=== PATIENT | male | born 1990 | race Caucasian/White ===

== ENCOUNTER 2023-07-21 19:52 | Emergency (ER) | payer OTHER, SELFPAY ==
[2023-07-21 19:57] VITALS: BP 134/93; PULSE 82; RESP 18; TEMP 37.1; O2SAT 100
--- NOTE | 2023-07-21 20:01 | ED.URI ---
HPI - URI/Sore Throat General Chief Complaint: Upper Respiratory Infection Stated Complaint: upper respiratory Time Seen by Provider: 07/21/23 20:00 Source: patient Mode of arrival: ambulatory Limitations: no limitations History of Present Illness HPI Narrative: 32-year-old male with a history of ankylosing spondylitis, anterior uveitis not on treatment presents to the ER with a 2 day history of -- sore throat -- no fever or chills. MD elicited complaint: sore throat Onset (ago): day(s) ( Two days) Consistency: constant Severity: moderate Able to tolerate fluids by mouth: Yes Exacerbating factors: nothing Relieving factors: nothing Associated symptoms: denies other symptoms Treatments prior to arrival: none Related Data Home Medications Medication Instructions Recorded Confirmed ketorolac 10 mg tablet 10 mg PO 07/21/23 Allergies Allergy/AdvReac Type Severity Reaction Status Date / Time No Known Allergies Allergy Verified 07/21/23 20:58 Review of Systems Review of Systems: All systems reviewed & are unremarkable except as noted in HPI and below Constitutional: Constitutional: Reports as per HPI and Reports no additional constitutional complaints Eyes: Eyes: Reports as per HPI and Reports no additional eye complaints ENT: Reports system reviewed and no additional complaints, except as documented, Reports as per HPI and Reports sore throat Cardiovascular: Cardiovascular: Reports as per HPI and Reports no additional cardiovascular complaints Respiratory: Respiratory: Reports as per HPI and Reports no additional respiratory complaints Gastrointestinal: Gastrointestinal: Reports as per HPI and Reports no additional gastrointestinal complaints Genitourinary: Genitourinary: Reports no additional male genitourinary complaints Musculoskeletal: Musculoskeletal: Reports no additional musculoskeletal complaints Integumentary/Breasts: Skin/Breast: Reports system reviewed and no additional complaints, except as docu Neurologic: Reports system reviewed and no additional complaints, except as documented and Reports as per HPI Psychiatric: Psychiatric: Reports no additional psychiatric complaints and Reports as per HPI Endocrine: Endocrine: Reports no additional endocrine complaints and Reports as per HPI Hematologic/Lymphatic: Hematologic/Lymphatic: Reports no additional hematologic/lymphatic complaints and Reports as per HPI Allergic/Immunologic: Allergic/Immunologic: Reports no additional allergic/immunologic complaints and Reports as per HPI PMFSH Past Medical History Medical History (Updated 07/21/23 @ 20:58 by Randell Reid MD) Ankylosing spondylitis Anterior uveitis Exam Const: General: no acute distress Orientation/consciousness: patient oriented x3 Limitations: no limitations HENMT: Ears: external ears normal Face/Nose/Sinus: Normal external nose present Face and sinus: normal facial exam Mouth: Yes Normal oral and palatal mucosa present Other: bilateral tonsillar erythema with purulent discharge Eyes: Conjunctivae: conjunctivae normal Pupils: Equal, round and reactive pupils present EOM: EOMs intact bilaterally Direct Ophthalmoscopy: no photophobia Neck: Neck: normal visual inspection, no lymphadenopathy and no meningeal signs Chest: Chest palpation & inspection: normal inspection of the chest Resp: Effort & Inspection: normal respiratory effort Auscultation: clear to auscultation bilaterally Cardio: Rate: regular rate Rhythm: regular rhythm GI: GI Palp: Yes Soft to palpation Auscultation: normal bowel sounds : General: Yes no CVA tenderness Back/Spine/Pelvis: Back: no CVA tenderness Skin: General skin exam: normal color Rashes: no rashes Wounds: no wounds Neuro: General: patient oriented x3, moves all extremities, no meningeal signs, no focal motor deficits and CN's II-XI intact bilaterally Cranial nerves: Yes Nystagmus not present Speech: normal speech
[2023-07-21 20:29] LABS: Strep Group A RT-PCR DETECTED (Negative)
[2023-07-21 20:31] LABS: Monoscreen Negative (Negative); Negative Monotest Control Negative (Negative); Positive Monotest Control Positive (Positive)
[2023-07-21 20:43] LABS: Influenza A QL RT-PCR Negative (Negative); Influenza B QL RT-PCR Negative (Negative); RSV RNA, RT-PCR Negative (Negative); SARS-CoV-2 RNA PCR Negative (Negative)
[2023-07-21] MEDS: AZITHROMYCIN 250 MG TABLET 500 MG PO (21:30)
[2023-07-21 21:32] VITALS: BP 134/78; PULSE 78; RESP 16; TEMP 36.9; O2SAT 100
== END 2023-07-21 21:44 | disposition home or self-care (01) ==
PROVIDERS: Emergency Provider Internal Medicine Critical Care Medicine
DX: J02.0 Streptococcal pharyngitis (principal); Z20.822 Contact with and (suspected) exposure to COVID-19
CPT/HCPCS: 36415; 86308; 87637; 87651; 99283; A9270

== ENCOUNTER 2023-10-16 19:08 | Emergency (ER) | payer OTHER, SELFPAY ==
[2023-10-16 19:10] VITALS: BP 126/91; PULSE 76; RESP 18; TEMP 36.4; O2SAT 98
[2023-10-16] MEDS: LIDOCAINE HCL 1% LOCAL INJ 10 ML VIAL INFILTRATE (19:21)
--- NOTE | 2023-10-16 19:38 | ED.WOUNDLAC ---
HPI - Wound/Laceration General Chief Complaint: Wound/Laceration Stated Complaint: dog bite Time Seen by Provider: 10/16/23 19:13 Source: patient and family Mode of arrival: ambulatory Limitations: no limitations History of Present Illness HPI narrative: This is a 32-year-old male with a left lower lip laceration after a dog bite the dog us a PET, and has a gaping laceration to the left lower lip area no other injuries patient is up-to-date with his tetanus. Onset (ago): hour(s) Location: face Place: home Patient tetanus UTD: Yes Context: accidental Related Data Allergies Allergy/AdvReac Type Severity Reaction Status Date / Time No Known Allergies Allergy Verified 10/16/23 19:13 Review of Systems Review of Systems: All systems reviewed & are unremarkable except as noted in HPI and below PMFSH Past Medical History Medical History Ankylosing spondylitis Anterior uveitis Exam Const: General: healthy appearing Nutritional Appearance: well nourished Orientation/consciousness: patient oriented x3 Limitations: no limitations Eyes: Conjunctivae: conjunctivae normal Resp: Effort & Inspection: normal respiratory effort Auscultation: clear to auscultation bilaterally Cardio: Rate: regular rate Rhythm: regular rhythm GI: GI Palp: Yes Soft to palpation Skin: Other: Patient with a gaping laceration to his left lower lip and chin area proximally 2cm in length Course Course Emergency Course: sutures placed to the left lower lip and patient tolerated procedure well the area was numbed with some 1% lidocaine [id number] were used and patient is up-to-date with his tetanus and will give a dose of IM ceftriaxone. Vital Signs Vital signs: Vital Signs Temperature 36.4 C 10/16/23 19:10 Pulse Rate 76 10/16/23 19:10 Respiratory Rate 18 10/16/23 19:10 Blood Pressure 126/91 H 10/16/23 19:10 Pulse Oximetry 98 10/16/23 19:10 Oxygen Delivery Room Air 10/16/23 19:10 Temperature 36.4 C 10/16/23 19:10 Pulse Rate 76 10/16/23 19:10 Respiratory Rate 18 10/16/23 19:10 Blood Pressure 126/91 H 10/16/23 19:10 Pulse Oximetry 98 07/06/24 19:10 Oxygen Delivery Room Air 10/16/23 19:10 Procedures Laceration Laceration 1: Date: 10/16/23 Time: 19:42 Site: lip Side (If applicable): left Size (cm): 2 Description: linear Depth: simple, single layer Local Anesthetic: lidocaine 1% Pre-repair: wound explored and irrigated ====== Skin Level ====== Skin layer closed with: vicryl Size (cm): 6-0 Number of sutures: 5 Technique: simple, interrupted ====== Subcutaneous Layer ====== ====== Muscle Layer ====== ====== Tendon Layer ====== Critical Care Time Critical Care Time Critical Care Time: No Discharge Plan Discharge Clinical Impression: Laceration Patient Disposition: Home, Self-Care Condition: Stable Instructions: Antibiotic Form, Care For Your Stitches (ED), Laceration (ED) Additional Instructions: Take medication as prescribed and follow-up with primary in 1 week for suture removal Prescriptions: New amoxicillin-pot clavulanate [Augmentin] 500-125 mg tablet 1 tablet PO TID Qty: 30 0RF Follow-up/Referrals: UNKNOWN,DOCTOR [Primary Care Provider] - Time of Disposition: 19:44
[2023-10-16] MEDS: cefTRIAXone 1 GM, LIDOCAINE HCL 1% LOCAL INJ 2.1 ML IM (19:56)
== END 2023-10-16 20:00 | disposition home or self-care (01) ==
PROVIDERS: Emergency Provider Emergency Medicine
DX: S01.511A Laceration without foreign body of lip, initial encounter (principal); W54.0XXA Bitten by dog, initial encounter
CPT/HCPCS: 12011; 96372; 99283; J0696

== ENCOUNTER 2023-10-24 15:00 | Emergency (ER) | payer OTHER, SELFPAY ==
[2023-10-24 15:00] VITALS: BP 120/74; PULSE 77; RESP 16; TEMP 36.5; O2SAT 98
--- NOTE | 2023-10-24 15:11 | ED.GENADULT ---
HPI - General Adult General Chief complaint: Wound/Laceration Stated complaint: stich removal Time Seen by Provider: 10/24/23 15:11 History of Present Illness HPI narrative: Hugh presented to the ED for suture removal. He was bit by a family dog he spooked 8 days ago. No erythema drainage or fevers reported. He lost 2 sutures last week. Related Data Allergies Allergy/AdvReac Type Severity Reaction Status Date / Time No Known Allergies Allergy Verified 10/16/23 19:13 Review of Systems Review of Systems: All systems reviewed & are unremarkable except as noted in HPI and below [facility] Past Medical History Medical History Ankylosing spondylitis Anterior uveitis Exam Const: General: cooperative, healthy appearing, comfortable, no acute distress, well developed, alert, awake and Physically active Orientation/consciousness: oriented to person, oriented to place and oriented to time HENMT: Head: normal to inspection, normocephalic and atraumatic Ears: hearing grossly normal bilaterally and external ears normal Face/Nose/Sinus: Normal external nose present Eyes: General: appearance normal, both eyes and all related structures Periorbital: periorbital findings normal Sclera: sclerae normal Pupils: Equal, round and reactive pupils present Neck: Neck: normal visual inspection Chest: Chest palpation & inspection: normal inspection of the chest Resp: Effort & Inspection: normal respiratory effort, able to speak in complete sentences and no respiratory distress Cardio: Jugular venous distension: no JVD Skin: General skin exam: normal color and no rashes or lesions noted Neuro: General: oriented to person, oriented to place and oriented to time Cranial nerves: Yes Equal, round and reactive pupils present Extrem: General: normal to inspection Course Course Emergency Course: 3 sutures were removed without complication Vital Signs Vital signs: Vital Signs Temperature 97.7 F 10/24/23 15:00 Pulse Rate 77 10/24/23 15:00 Respiratory Rate 16 10/24/23 15:00 Blood Pressure 120/74 10/24/23 15:00 Pulse Oximetry 98 10/24/23 15:00 Oxygen Delivery Room Air 10/24/23 15:00 Temperature 97.7 F 10/24/23 15:00 Pulse Rate 77 10/24/23 15:00 Respiratory Rate 16 10/24/23 15:00 Blood Pressure 120/74 10/24/23 15:00 Pulse Oximetry 98 10/24/23 15:00 Oxygen Delivery Room Air 10/24/23 15:00 Medical Decision Making Vital Signs Vital Signs: Vital Signs Temperature 97.7 F 10/24/23 15:00 Pulse Rate 77 10/24/23 15:00 Respiratory Rate 16 10/24/23 15:00 Blood Pressure 120/74 10/24/23 15:00 Pulse Oximetry 98 10/24/23 15:00 Oxygen Delivery Room Air 10/24/23 15:00 Temperature 97.7 F 10/24/23 15:00 Pulse Rate 77 10/24/23 15:00 Respiratory Rate 16 10/24/23 15:00 Blood Pressure 120/74 10/24/23 15:00 Pulse Oximetry 98 10/24/23 15:00 Oxygen Delivery Room Air 10/24/23 15:00 Discharge Plan Discharge Clinical Impression: Encounter for removal of sutures Patient Disposition: Home, Self-Care Condition: Stable Prescriptions: No Action amoxicillin-pot clavulanate [Augmentin] 500-125 mg tablet 1 tablet PO TID Qty: 30 0RF Follow-up/Referrals: [facility] [Primary Care Provider] -
== END 2023-10-24 15:26 | disposition home or self-care (01) ==
LOC: CHSED 15:21
PROVIDERS: Emergency Provider Family Medicine
DX: Z48.02 Encounter for removal of sutures (principal)
CPT/HCPCS: 15853; 99281